=== PATIENT | female | born 1965 | race Caucasian/White ===

== ENCOUNTER 2018-08-05 17:40 | Emergency (ER) | payer BC, OTHER ==
[~2018-08-05] VITALS: Wt 61.5 kg
[2018-08-05 17:43] VITALS: BP 140/70; PULSE 72; RESP 19
[2018-08-05] MEDS ORDERED: ACETAMINOPHEN 325 MG TAB PO ONE (18:00)
[2018-08-05] MEDS ORDERED: DIPHTH/TET/ACEL PERTUSS (ADULT) 0.5 ML VIAL IM* ONE (18:00)
[2018-08-05] MEDS ORDERED: IBUP-1542 PO (18:31)
--- NOTE | 2018-08-05 18:33 | ERD ---
ER Documentation Chief Complaint Chief Complaint bib self, cc: left hand index finger lac with knife, unknown last tetanus HPI This 52-year-old female presents with a laceration to her left index finger with a knife in the kitchen today. Tetanus not up-to-date. It is on the pad of the finger. She has no restricted range of motion weakness. ROS All systems reviewed and are negative except as per history of present illness. Medications Home Meds Active Scripts Ibuprofen* (Motrin*) 600 Mg Tab, 600 MG PO Q6, #15 TAB Prov:FLAKITO DELCID MD 08/05/18 PMhx/Soc History of Surgery: Yes () Anesthesia Reaction: No Hx Neurological Disorder: No Hx Respiratory Disorders: No Hx Cardiac Disorders: No Hx Psychiatric Problems: No Hx Miscellaneous Medical Probl: Yes (CHOLESTEROL, DM) Hx Alcohol Use: No Hx Substance Use: No Hx Tobacco Use: No Smoking Status: Never smoker Physical Exam Vitals Vital Signs Date Temp Pulse Resp B/P (MAP) Pulse Ox O2 O2 Flow FiO2 Time Delivery Rate 08/05/18 98.2 72 19 140/70 100 17:43 (93) Physical Exam Const: No acute distress Head: Atraumatic Eyes: Normal Conjunctiva ENT: Normal External Ears, Nose and Mouth. Neck: Full range of motion. No meningismus. Resp: Clear to auscultation bilaterally Cardio: Regular rate and rhythm, no murmurs Abd: Soft, non tender, non distended. Normal bowel sounds Skin: No petechiae or rashes Back: No midline or flank tenderness Ext: No cyanosis, or edema. Approximately 1.3 cm laceration which is C- shaped on the pad of the left index. No involvement of the joint. No strict range of motion or deficits. Neur: Awake and alert Psych: Normal Mood and Affect Results 24 hrs Current Medications Medications Dose Sig/Carolyn Start Time Status Last (Trade) Ordered Route PRN Stop Time Admin Dose Reason Admin 650 mg ONCE ONCE 08/05/18 DC 08/05/18 Acetaminophen PO 18:00 18:07 (Tylenol 08/05/18 18:01 Tab) Diphtheria/ 0.5 ml ONCE ONCE 08/05/18 DC 08/05/18 Tetanus/Acell IM* 18:00 18:08 Pertussis 08/05/18 18:01 (Adacel) Procedures/MDM Patient presents with a left index finger laceration with evidence of deficits, signs of infection. No evidence of ischemia. Procedure note-left index finger was irrigated copiously with normal saline. 2 cc of lidocaine was used to perform a digital block. Anesthesia was obtained. 4 5-0 nylon sutures were used to reapproximate the wound. Patient tolerated procedure well and wound was dressed. She will be discharged home with instructions for wound check in 2 days and suture removal in 7 days, sooner for redness, fevers, new or worsening symptoms. Departure Diagnosis: Primary Impression: Laceration Condition: Stable Patient Instructions: Laceration, Hand Additional Instructions: Cheque 2 zhao para cheque para infeccion. cheque 7 zhao para saca los puntos / grapas. FLAKITO DELCID MD Aug 05, 2018 18:33
== END 2018-08-05 18:50 | disposition home or self-care (01) ==
LOC: FTE 17:40
DX: S61.211A Laceration without foreign body of left index finger without damage to nail, initial encounter (principal); E11.9 Type 2 diabetes mellitus without complications; W26.0XXA Contact with knife, initial encounter; Y92.000 Kitchen of unspecified non-institutional (private) residence as the place of occurrence of the external cause; Z23 Encounter for immunization
CPT/HCPCS: 90471; 90715